=== PATIENT | male | born 1970 | race African-American/Black ===

== ENCOUNTER 2025-02-12 11:10 | Emergency (ER) | payer OTHER, SELFPAY ==
[2025-02-12 12:04] LABS: % Basophils 0.7 % (0-2); % Eosinophils 4.6 % (0-6); % Immature Granulocytes 0.3 % (0-0.5); % Lymphocytes 32.1 % (20.5-51.1); % Neutrophils 54.3 % (42.2-75.2); Absolute Basophils 0.1 10^3/uL (0-0.2); Absolute Eosinophils 0.3 10^3/uL (0-0.7); Absolute Lymphocytes 2.2 10^3/uL (1.2-3.4); Absolute Monocytes 0.5 10^3/uL (0.1-0.6); Absolute Neutrophils 3.7 10^3/uL (1.4-6.5); Hematocrit 39.7 % (39.0-52.0); Hemoglobin 13.1 g/dL (13.0-18.0); Mean Corpuscular Hgb 23.1 pg (27.0-31.0); Mean Corpuscular Volume 69.9 fL (80.0-94.0); Mean Platelet Volume 8.4 fL (7.4-10.4); Nucleated Red Blood Cells % 0 % (-); Platelet Count 294 10^3/uL (130-400); Red Blood Cell Count 5.68 10^6/uL (4.70-6.10); Red Cell Dist. Width 14.6 % (11.5-14.5); White Blood Cell Count 6.8 10^3/uL (4.8-10.8)
[2025-02-12 12:39] LABS: ALT (SGPT) 34 U/L (0-50); AST (SGOT) 27 U/L (17-59); Alkaline Phosphatase 34 U/L (38-126); Blood Urea Nitrogen 11 mg/dl (9-20); Calcium 9.1 mg/dl (8.4-10.2); Carbon Dioxide 27 mmol/L (22-30); Chloride 107 mmol/L (98-107); Glucose 98 mg/dl (70-99); Potassium 4.1 mmol/L (3.5-5.1); Sodium 139 mmol/L (135-145); Total Bilirubin 0.7 mg/dl (0.2-1.3); Total Protein 6.2 g/dl (6.3-8.2); eGFR > 60.00
[2025-02-12 12:48] LABS: NT-proBNP < 20.0 pg/ml
[2025-02-12 13:34] VITALS: BMI 30.1
[2025-02-12 13:44] VITALS: BP 136/104
--- NOTE | 2025-02-12 14:16 | ED.GENMED ---
History of Present Illness
General
Chief Complaint: Swelling
Source: patient
Exam Limitations: none
Time Seen by Provider: 02/12/25 13:02
Nursing documentation reviewed up to this point in time: agreed with
History of Present Illness
History of Present Illness:
54 y/o M
new to [facility] from [facility]
h/o HTN, CAD,
on amlodipine, carvedilol, spironolactone, asa, plavix
says he has been on amlodpiine for 1.5 years
pt started having swellin gin his ankle last week, got worse int hepast 3 days
they feel tight
no chest pain, shortness of breath, fever, chills, skin redness
staff sent him for evaluation
pt says he normally doesn't have leg sewlling like this
i asked about him elevating his legs, sounds as if he has not beend oing anything too differently
he doesn't have all of his medical information
the staff at the facility doesn't really iknow much about him
Phy Exam
Physical Exam
Physical Exam:
GENERAL: Alert , in no apparent distress
EYE: pupils equal and reactive
NECK: Supple
ENT: o/p clr, mmm.
CARDIAC: Regular rate and rhythm . No murmur
LUNGS: Clear breath sounds bilaterally, no acute respiratory distress, no wheezes/rales/rhonchi
ABDOMEN: Soft, without focal tenderness, no r/g, no cvat, normal bowel sounds
NEUROLOGICAL: Alert and oriented, left upper extremity contracture secondary to stroke
SKIN: Warm and dry, skin intact.
MUSCULOSKELETAL: N moderate pitting bilateral lower extremity o edema, well perfused. neg ramirez's sign
Normal pulse, some venous stasis skin changes without erythema
PSYCH: Normal and appropriate interaction.
Scores
Heart Failure Risk
Heart Failure Risk Score: Not Applicable
Course
Orders/Labs/Results
Orders:
Orders
02/12/25 11:53
Complete Blood Count/With Diff Urgent
Comprehensive Metabolic Panel Urgent
NT-proBNP Urgent
02/12/25 13:03
CR Chest - 2 Views Urgent
Comment:
Reason For Exam: edema ankoles
Abnormal Lab Results
02/12/25
11:53
MCV 69.9 L fL
(80.0-94.0)
MCH 23.1 L pg
(27.0-31.0)
RDW 14.6 H %
(11.5-14.5)
Alkaline Phosphatase 34 L U/L
(38-126)
Total Protein 6.2 L g/dl
(6.3-8.2)
02/12/25 11:53
02/12/25 11:53
Vital Signs
Initial and Last Documented VS:
Initial Vital Signs
Temp Pulse Resp Pulse Ox
36.6 C 72 18 99
02/12/25 11:26 02/12/25 11:26 02/12/25 11:26 02/12/25 11:26
Last Documented Vital Signs
Temp Pulse Resp BP Pulse Ox
36.6 C 66 18 119/75 98
02/12/25 11:26 02/12/25 15:40 02/12/25 15:40 02/12/25 15:40 02/12/25 15:40
MDM/Problems Addressed
Differential Diagnosis Includes:
edema, chf, renal disease
MDM/Problems Addressed:
54 y/o M
from [place]
new to them within 1 mo
has been seen by [facility]
has ho cad withs tent, stroke
here with edema in legs,
discomfort realated tot hem feeling heavy
but otherwise no pain
normals ensation
no cp,k sob
no other edema
takes amlodipine 5 mg bid, carvedilol 6.25 mg bid, and spironolactone 25 mg bid
pt says he has been on the amlodipine for > 1 year
never had edema
lungs clear
vitals mild hypertensive initially , improved
but HR 70s
cxr indep reviewed, clear
bnp normal
renal function liv
probably SE from amloipine
compression socks, pt toribio has, but hasn't been wearing
and i spoke with pt's equipment cleaner and tester who recommended d/c the amlodpine and instead increase the carvedilol to 12.5 mg bid
RN at facility aware
*Critical Care Note
Total Time (30-74mins, 75-104mins- exclusive of procedures): Not Applicable
ED Attending Note
-
Portions of this chart may have been created with voice recognition software.� Occasional wrong word or��sound alike� substitutions may have occurred due to the inherent limitations of voice recognition software.
Discharge Plan
Departure
Patient Disposition: Home (Routine Discharge)
Date of Disposition: 02/12/25
Time of Disposition: 15:48
Patient with high blood pressure during this ER visit?: Yes
Discharge Problem:
Edema
Instructions: Dependent Edema (DC)
Prescriptions:
New
carvedilol 12.5 mg tablet
12.5 mg PO BID Qty: 60 0RF
Referrals:
UNKNOWN - PT DOES,NOT KNOW [Family Provider] -
Activity Restrictions/Additional Instructions:
We think that your swelling is from a side effect of one of your medications. I did talk to Dr. Lisa your equipment cleaner and tester who recommended stopping the amlodipine and instead increasing the carvedilol to 12.5 milligrams twice a day.
Wear compression stockings during the day, take them off at night. Try to elevate your legs. Return for worsening symptoms like severe swelling up past your thighs, trouble breathing, facial swelling, skin changes, weakness or numbness or any
concerns. Otherwise please call the equipment cleaner and tester office, I used your card in your wallet to contact your doctor. They can move up your appointment.
Interventions
Interventions:
*Risk Screen - Suicide Last Done: 02/12/25 11:30
*General Assessment Last Done: 02/12/25 11:30
*Neglect/Abuse Screening Last Done: 02/12/25 11:30
*ED- Fall Risk Assessment Last Done: 02/12/25 13:34
*ED COVID-19 Vaccine History Last Done: 02/12/25 13:34
*Nursing Disposition Last Done: 02/12/25 16:32
ED- Cardiac Assessment Last Done: 02/12/25 13:34
ED- Pulmonary Assessment Last Done: 02/12/25 13:34
ED-Skin Assessment Last Done: 02/12/25 13:34
Discharge Date and Time
Discharge Date/Time: 02/12/25 16:34
Print Language: YORUBA
[2025-02-12 15:40] VITALS: BP 119/75
== END 2025-02-12 16:34 | disposition home or self-care (01) ==
LOC: EMR 11:10
PROVIDERS: Emergency Medicine; EMERGENCY PHYSICIAN Emergency Medicine
DX: R60.0 Localized edema (principal); I10 Essential (primary) hypertension; I25.10 Atherosclerotic heart disease of native coronary artery without angina pectoris; Z79.02 Long term (current) use of antithrombotics/antiplatelets; Z79.82 Long term (current) use of aspirin; Z79.899 Other long term (current) drug therapy
CPT/HCPCS: 99284; 71046; 80053; 83880; 85025